=== PATIENT | female | born 2000 | race Hispanic/Latino ===

== ENCOUNTER 2023-12-28 12:06 | Outpatient (CLI) | payer OTHER | END 2023-12-28 12:07 | disposition home or self-care (01) | LOC: BICULT 12:06 | PROVIDERS: ATTEND Family Medicine | DX: R10.2 Pelvic and perineal pain (principal) | CPT/HCPCS: 76856; 93976 ==

== ENCOUNTER 2024-04-21 14:36 | Outpatient (CLI) | payer OTHER | END 2024-04-21 14:37 | disposition home or self-care (01) | LOC: BICRAD 14:36 | PROVIDERS: ATTEND Family Medicine | DX: R10.32 Left lower quadrant pain (principal) | CPT/HCPCS: 74019 ==